=== PATIENT | male | born 1980 | race Caucasian/White ===

== ENCOUNTER 2023-05-13 09:02 | Emergency (ER) | payer SELFPAY ==
[~2023-05-13] VITALS: Ht 183 cm; Wt 78.0 kg
[~2023-05-13 09:02] MED LIST: HYDR-623 PO; IBP800T PO; LRZ1T PO; MTP50T PO; TRM50T PO
[2023-05-13] MEDS ORDERED: KETOROLAC INJ 15 MG/ML VIAL IVP ONE (09:30)
[2023-05-13] MEDS ORDERED: cefTRIAXone IV/IM 1,000 MG in NS (IVPB) 50 ML 50 ML IV ONE (09:30)
[2023-05-13] MEDS ORDERED: NS IV 1000 ML 1,000 ML IV SCH (09:30)
--- NOTE | 2023-05-13 09:32 | ED General ---
General Chief Complaint: Abdominal/GI Problems Stated Complaint: FACIAL SWELLING | LETHARGIC | VOMITING Nursing Triage Note: PT STATES FACIAL SWELLING, VOMITING, FEVER/CHILLS, WAKING UP SWEATING, NO MEDS TAKEN, UPPER RT DENTAL ISSUES, FOR 3 DAYS. PASSES OUT WHEN HE TRIES TO GET UP AND AROUND, WAS DRIVEN HERE. GENERAL BODY ACHES Source of Information: Patient Exam Limitations: No Limitations History of Present Illness Date Seen by Provider: May 13, 2023 Time Seen by Provider: 09:28 Initial Comments 6-year-old male presents with general malaise bones aching not feeling well for the past 3 days does have widespread dental disease and now has increased pain in his right upper molar with lower lid edema no evidence of periapical abscess or superficial abscess. We will ems intact no difficulty swallowing or sore throat. States he has a history of high blood pressure but feels like he is in a pass out every time he stands up. No specific or focal pain just generalized. Will evaluate for flu COVID, will treat with IV fluids Zofran for nausea as well as Rocephin for dental caries and Toradol for pain. Will obtain basic labs as well as urinalysis. Patient agrees. He does not have a primary care here we will give him referral line in discharge paper for follow-up. Timing/Duration: 3-4 Days Severity: Moderate Modifying Factors: improves with Movement Associated Systoms: Malaise, Nausea/Vomiting, Weakness Allergies and Home Medications Allergies Coded Allergies: No Known Drug Allergies (Unverified , 07/24/12) Patient Home Medication List Home Medication List Reviewed: Yes Amoxicillin (Amoxicillin) 500 Mg Capsule, 500 MG PO TID Prescribed by: Inocente Alvarado on 05/13/23 1042 Hydrocodone Bit/Acetaminophen (Perry 10-325 Tablet) 1 Tab Tablet, 1 EACH PO Q6HR PRN, (Reported) Entered as Reported by: TAMMY CORONEL on 07/24/12 1041 Ibuprofen (Motrin Tablet) 800 Mg Tablet, 1 EACH PO TID PRN Prescribed by: KEVIN MARIE on 08/02/12 0509 Lorazepam (Ativan) 1 Mg Tab, 1 MG PO Q6H PRN, (Reported) Entered as Reported by: CAPRI GLEZ on 07/25/12 1202 Metoprolol Tartrate (Metoprolol Tartrate 50 Mg) 50 Mg Tablet, 0.5 EACH PO BID, (Reported) Entered as Reported by: CAPRI GLEZ on 07/25/12 1202 Ondansetron (Ondansetron Odt) 4 Mg Tab.rapdis, 4 MG PO Q6H PRN for NAUSEA/VOMITING Prescribed by: Incoente Alvarado on 05/13/23 1042 Tramadol HCl (Tramadol HCl) 50 Mg Tablet, 50 MG PO Q6H PRN for PAIN Prescribed by: Inocente Alvarado on 05/13/23 1042 Tramadol Hcl (Ultram) 50 Mg Tab, 50 MG PO Q4H Prescribed by: KEVIN MARIE on 08/02/12 0508 Review of Systems Review of Systems Constitutional: see HPI, fever, malaise, weakness EENTM: dental problems Respiratory: see HPI Cardiovascular: see HPI Gastrointestinal: see HPI, nausea, vomiting Genitourinary: see HPI Musculoskeletal: see HPI Skin: see HPI Psychiatric/Neurological: See HPI Hematologic/Lymphatic: See HPI Immunological/Allergic: see HPI All Other Systems Reviewed Negative Unless Noted: Yes Past [id number] Hx Patient Social History Tobacco Use?: Yes Tobacco type used: Cigarettes Substance use?: No Alcohol Use?: No Past Medical History Surgery/Hospitalization HX: HTN, AMI, FIBROMYALGIA, STROKE, ZION, CRUSHED DISKS REMOVED Reproductive Disorders: No Physical Exam Vital Signs Vital Signs - First Documented 05/13/23 09:10 Temp 36.7 Pulse 102 Resp 20 B/P (MAP) 147/92 (110) Pulse Ox 99 O2 Delivery Room Air Capillary Refill : Less Than 3 Seconds Height, Weight, BMI Height: '" Weight: lbs. oz. kg; 23.00 BMI Method:Stated General Appearance: WD/WN Eyes: Right Eye Lid Inflammation (Lower lid); Bilateral Eye Normal Inspection, Bilateral Eye PERRL, Bilateral Eye EOMI HEENT: PERRL/EOMI, TMs Normal, Other (Widespread dental caries no periapical abscess associated gingivitis as well) Neck: Non Tender Respiratory: Chest Non Tender, Lungs Clear, Normal Breath Sounds Cardiovascular: Regular Rate, Rhythm, No Edema, Normal Peripheral Pulses Gastrointestinal: Normal Bowel Sounds, Soft Back: Normal Inspection, No CVA Tenderness Extremity: Normal Inspection, Normal Range of Motion, Non Tender Neurologic/Psychiatric: Alert, Oriented x3, No Motor/Sensory Deficits, Normal Mood/Affect, estate planning paralegal II-XII Norm as Tested Skin: Normal Color, Warm/Dry Lymphatic: No Adenopathy Focused Exam Lactate Level 05/13/23 09:25: Lactic Acid Level 0.95 Lactic Acid Level Laboratory Tests Test 05/13/23 09:25 Lactic Acid Level 0.95 MMOL/L (0.50-2.00) Progress/Results/Core Measures Suspected Sepsis SIRS Temperature: Pulse: 102 Respiratory Rate: 20 Laboratory Tests 05/13/23 09:25: White Blood Count 9.5 Blood Pressure 147 /92 Mean: 110 05/13/23 09:25: Lactic Acid Level 0.95 Laboratory Tests 05/13/23 09:25: Creatinine 0.78, Platelet Count 259, Total Bilirubin 0.4 Results/Orders Lab Results Laboratory Tests Test 05/13/23 09:25 Range/Units White Blood Count 9.5 4.3-11.0 10^3/uL Red Blood Count 4.50 4.30-5.52 10^6/uL Hemoglobin 13.7 13.3-17.7 g/dL Hematocrit 41 40-54 % Mean Corpuscular Volume 90 80-99 fL Mean Corpuscular Hemoglobin 30 25-34 pg Mean Corpuscular Hemoglobin Concent 34 32-36 g/dL Red Cell Distribution Width 13.1 10.0-14.5 % Platelet Count 259 130-400 10^3/uL Mean Platelet Volume 10.1 9.0-12.2 fL Immature Granulocyte % (Auto) 0 % Neutrophils (%) (Auto) 69 42-75 % Lymphocytes (%) (Auto) 19 12-44 % Monocytes (%) (Auto) 11 0-12 % Eosinophils (%) (Auto) 1 0-10 % Basophils (%) (Auto) 0 0-10 % Neutrophils # (Auto) 6.6 1.8-7.8 10^3/uL Lymphocytes # (Auto) 1.8 1.0-4.0 10^3/uL Monocytes # (Auto) 1.0 0.0-1.0 10^3/uL Eosinophils # (Auto) 0.1 0.0-0.3 10^3/uL Basophils # (Auto) 0.0 0.0-0.1 10^3/uL Immature Granulocyte # (Auto) 0.0 0.0-0.1 10^3/uL Sodium Level 139 135-145 MMOL/L Potassium Level 3.5 L 3.6-5.0 MMOL/L Chloride Level 103 98-107 MMOL/L Carbon Dioxide Level 27 21-32 MMOL/L Anion Gap 9 5-14 MMOL/L Blood Urea Nitrogen 12 7-18 MG/DL Creatinine 0.78 0.60-1.30 MG/DL Estimat Glomerular Filtration Rate 116 BUN/Creatinine Ratio 15 Glucose Level 82 70-105 MG/DL Lactic Acid Level 0.95 0.50-2.00 MMOL/L Calcium Level 9.2 8.5-10.1 MG/DL Corrected Calcium 9.0 8.5-10.1 MG/DL Total Bilirubin 0.4 0.1-1.0 MG/DL Aspartate Amino Transf (AST/SGOT) 18 5-34 U/L Alanine Aminotransferase (ALT/SGPT) 21 0-55 U/L Alkaline Phosphatase 96 40-136 U/L Total Protein 7.3 6.4-8.2 GM/DL Albumin 4.3 3.2-4.5 GM/DL Influenza Type A (RT-PCR) Not Detected Not Detecte Influenza Type B (RT-PCR) Not Detected Not Detecte SARS-CoV-2 RNA (RT-PCR) Not Detected Not Detecte My Orders Orders - INOCENTE ALVARADO DO Cbc And Automated Diff (05/13/23 09:19) Comprehensive Metabolic Panel (05/13/23 09:19) Lactic Acid Analyzer (05/13/23 09:19) Ed Iv/Invasive Line Start (05/13/23 09:19) Ns Iv 1000 Ml (Ns Iv 1000 Ml) (05/13/23 09:30) Ketorolac Injection (Ketorolac Injection (05/13/23 09:30) Covid 19 Inhouse Test (05/13/23 09:19) Influenza A And B By Pcr (05/13/23 09:19) Ceftriaxone Iv/Im (Ceftriaxone Iv/Im) (05/13/23 09:30) Ondansetron Injection (Ondansetron Inj (05/13/23 09:45) Ondansetron Injection (Ondansetron Inj (05/13/23 09:38) Medications Given in ED Current Medications Medications Dose Ordered Sig/Fany Route Start Time Stop Time Status Last Admin Dose Admin Ceftriaxone Sodium 1000 mg/ Sodium Chloride 50 ml @ 100 mls/hr ONCE ONCE IV 05/13/23 09:30 05/13/23 09:59 DC 05/13/23 09:40 100 MLS/HR Ketorolac Tromethamine 15 mg ONCE ONCE IVP 05/13/23 09:30 05/13/23 09:31 DC 05/13/23 09:40 15 MG Ondansetron HCl 4 mg ONCE ONCE IVP 05/13/23 09:45 05/13/23 09:46 DC 05/13/23 09:44 4 MG Vital Signs/I&O 05/13/23 05/13/23 09:10 09:40 Temp 36.7 36.7 Pulse 102 Resp 20 B/P (MAP) 147/92 (110) Pulse Ox 99 O2 Delivery Room Air Capillary Refill : Less Than 3 Seconds Blood Pressure Mean: 110 Progress Note : Progress Note Labs are unremarkable. Indication for CT at this time. Will discharge home with Zofran, advised Tylenol Motrin as needed for body aches and chills. Will place on antibiotics for his dental problems. Follow-up with dentist and primary care on referral line. Departure Impression Primary Impression: Pain due to dental caries Additional Impression: Viral syndrome Disposition: 01 HOME, SELF-CARE Condition: Stable Departure-Patient Inst. Referrals: NO,LOCAL PHYSICIAN (PCP/Family) Primary Care Physician Patient Instructions: Tooth Decay, Adult (DC), Viral Syndrome (DC) Scripts Tramadol HCl (Tramadol HCl) 50 Mg Tablet 50 MG PO Q6H PRN for PAIN for 3 Days, #12 TAB 0 Refills Prov: INOCENTE ALVARADO DO 05/13/23 Ondansetron (Ondansetron Odt) 4 Mg Tab.rapdis 4 MG PO Q6H PRN for NAUSEA/VOMITING, #20 TAB 0 Refills Prov: INOCENTE ALVARADO DO 05/13/23 Amoxicillin (Amoxicillin) 500 Mg Capsule 500 MG PO TID for 14 Days, #21 CAP 0 Refills Prov: INOCENTE ALVARADO DO 05/13/23 INOCENTE ALVARADO DO May 13, 2023 09:32
[2023-05-13 09:36] LABS: BASOPHILS % (AUTO) 0 % (0-10); EOSINOPHILS # (AUTO) 0.1 10^3/uL (0.0-0.3); EOSINOPHILS % (AUTO) 1 % (0-10); HEMATOCRIT 41 % (40-54); HEMOGLOBIN 13.7 g/dL (13.3-17.7); LYMPHOCYTES # (AUTO) 1.8 10^3/uL (1.0-4.0); LYMPHOCYTES % (AUTO) 19 % (12-44); MEAN CORPUSCULAR HEMOGLOBIN 30 pg (25-34); MEAN CORPUSCULAR HGB CONC 34 g/dL (32-36); MEAN CORPUSCULAR VOLUME 90 fL (80-99); MEAN PLATELET VOLUME 10.1 fL (9.0-12.2); MONOCYTES % (AUTO) 11 % (0-12); NEUTROPHILS # (AUTO) 6.6 10^3/uL (1.8-7.8); NEUTROPHILS % (AUTO) 69 % (42-75); PLATELET COUNT 259 10^3/uL (130-400); WHITE BLOOD COUNT 9.5 10^3/uL (4.3-11.0)
[2023-05-13] MEDS ORDERED: ONDANSETRON INJECTION 4 MG/2 ML (SDV) ONE (09:38)
[2023-05-13 09:45] LABS: ALBUMIN 4.3 GM/DL (3.2-4.5); POTASSIUM 3.5 MMOL/L (3.6-5.0)
[2023-05-13] MEDS ORDERED: ONDANSETRON INJECTION 4 MG/2 ML (SDV) IVP ONE (09:45)
[2023-05-13 09:46] LABS: CALCIUM 9.2 MG/DL (8.5-10.1)
[2023-05-13 09:47] LABS: TOTAL PROTEIN 7.3 GM/DL (6.4-8.2)
[2023-05-13 09:49] LABS: BILIRUBIN,TOTAL 0.4 MG/DL (0.1-1.0)
[2023-05-13 09:51] LABS: CREATININE SERUM 0.78 MG/DL (0.60-1.30)
[2023-05-13] MEDS ORDERED: ONDA4TAB11 PO (10:42)
[2023-05-13] MEDS ORDERED: AMOX500C2 PO (10:42)
[2023-05-13] MEDS ORDERED: TRM50T PO (10:42)
[2023-05-13 11:14] VITALS: BP 136/80
== END 2023-05-13 11:14 | disposition home or self-care (01) ==
LOC: EDUNIT# 09:02 → ER 09:04
DX: K02.9 Dental caries, unspecified (principal); B34.9 Viral infection, unspecified; R53.81 Other malaise; R53.1 Weakness; R11.2 Nausea with vomiting, unspecified; F17.210 Nicotine dependence, cigarettes, uncomplicated; Z20.822 Contact with and (suspected) exposure to COVID-19
CPT/HCPCS: 36415; 80053; 83605; 85025; 87636